=== PATIENT | male | born 1950 | race African-American/Black ===

== ENCOUNTER 2016-06-08 12:54 | Outpatient (CLI) | payer MEDICARE ==
--- NOTE | 2016-06-08 15:41 | RAD ---
CERVICAL SPINE: 06/08/16 Seven views obtained. Lateral views were obtained in neutral flexion and extension positions. HISTORY: Neck pain. Right arm numbness. There is straightening of the lordotic curvature. There is loss of disc height at all levels of the cervical spine. There is slight posterior subluxation at C3-4, C4-5, C5-6 and C6-7 levels. There is posterior spondylitic changes at these levels encroaching into the spinal canal. Anterior osteophyte s are seen at these levels. No significant change in alignment with flexion or extension. Foraminal encroachment at multiple levels due to facet and uncinate hypertrophy. IMPRESSION: Moderate degenerative changes of the cervical spine as described above. POS: ANNIE
== END 2016-06-08 12:55 | disposition home or self-care (01) ==
LOC: NAV RAD 12:54
PROVIDERS: ATTEND Neurological Surgery
DX: M54.12 Radiculopathy, cervical region (principal); M50.10 Cervical disc disorder with radiculopathy, unspecified cervical region
CPT/HCPCS: 72052

== ENCOUNTER 2017-05-02 12:36 | Emergency (ER) | payer MEDICARE ==
[2017-05-02] MEDS ORDERED: Lidocaine 1% 20 ML MDV ONE (12:54)
== END 2017-05-02 13:16 | disposition home or self-care (01) ==
LOC: NAV ERS 12:36
DX: K61.0 Anal abscess (principal); I10 Essential (primary) hypertension; F32.9 Major depressive disorder, single episode, unspecified; Z79.899 Other long term (current) drug therapy
CPT/HCPCS: 46050; J2001

== ENCOUNTER 2017-05-04 13:39 | Emergency (ER) | payer MEDICARE | END 2017-05-04 14:07 | disposition home or self-care (01) | LOC: NAV ERS 13:39 | DX: K61.0 Anal abscess (principal); I10 Essential (primary) hypertension; F32.9 Major depressive disorder, single episode, unspecified; Z79.899 Other long term (current) drug therapy | CPT/HCPCS: 99282 ==

== ENCOUNTER 2021-03-12 15:17 | Outpatient (CLI) | payer MEDICARE | END 2021-03-12 15:18 | disposition home or self-care (01) | LOC: NAV RAD 15:17 | PROVIDERS: ATTEND Nurse Practitioner Family | DX: R06.02 Shortness of breath (principal) | CPT/HCPCS: 71046 ==

== ENCOUNTER 2021-03-15 10:43 | Emergency (ER) | payer OTHER, MEDICARE ==
[~2021-03-15 10:43] MED LIST: Iopamidol 370 76% 100 ML VIAL ONE
[2021-03-15] MEDS ORDERED: Sodium Chloride 0.9% 1,000 ML ONE (11:22)
[2021-03-15] MEDS ORDERED: Ondansetron PF 4 MG/2 ML Vial ONE (11:22)
[2021-03-15] MEDS ORDERED: Fentanyl 100 MCG/2 ML VIAL ONE (11:22)
[2021-03-15 11:59] LABS: ALT (SGPT) 45 U/L (8-55); AST (SGOT) 83 U/L (5-34); Albumin 4.2 g/dL (3.4-4.8); Alkaline Phosphatase 69 U/L (40-110); Anion Gap 21 mmol/L (10-20); BUN (Urea Nitrogen) 10 mg/dL (8.4-25.7); Bilirubin, Total 1.5 mg/dL (0.2-1.2); Calc. Creatinine Clearance 0 mL/min (70-130); Calcium 10.2 mg/dL (7.8-10.44); Carbon Dioxide 21 mmol/L (23-31); Chloride 95 mmol/L (98-107); Globulin 4.1 g/dL (2.4-3.5); Glucose 102 mg/dL (80-115); Lipase 56 U/L (8-78); Potassium 3.4 mmol/L (3.5-5.1); Protein, Total 8.3 g/dL (5.8-8.1); Sodium 134 mmol/L (136-145)
[2021-03-15 12:01] LABS: #Basophils 0.1 thou/uL (0.0-0.2); #Eosinphils 0.1 thou/uL (0.0-0.7); #Lymphocytes 1.1 thou/uL (1.20-3.40); #Monocytes 0.7 thou/uL (0.11-0.59); #Neutrophils 2.8 thou/uL (1.40-6.50); %Basophils 2.6 % (0.0-1.0); %Eosinophils 2.5 % (0.0-10.0); %Lymphocytes 23.1 % (21.0-51.0); %Monocytes 13.8 % (0.0-10.0); %Neutrophils 58.1 % (42.0-75.0); Hemoglobin 14.1 g/dL (14.0-18.0); Mean Corpuscular HGB CONC 31.1 g/dL (32.0-36.0); Mean Corpuscular Hemoglobin 29.8 pg (27.0-31.0); Mean Corpuscular Volume 95.9 fL (78.0-98.0); Mean Platelet Volume 7.7 fL (7.4-10.4); Platelet Count 246 thou/uL (130-400); RBC Distribution Width 13.4 % (11.5-14.5); Red Blood Cell (RBC) Count 4.73 mill/uL (4.70-6.10); White Blood Cell (WBC) Count 4.9 thou/uL (4.8-10.8)
== END 2021-03-15 13:20 | disposition home or self-care (01) ==
LOC: NAV ERS 10:43
DX: S30.1XXA Contusion of abdominal wall, initial encounter (principal); W01.0XXA Fall on same level from slipping, tripping and stumbling without subsequent striking against object, initial encounter; I10 Essential (primary) hypertension; J45.909 Unspecified asthma, uncomplicated; Z87.891 Personal history of nicotine dependence; Z79.899 Other long term (current) drug therapy
CPT/HCPCS: 71260; 74177; 80053; 83690; 85025; 96374; 96375; J2405; J3010; J7050; Q9967

== ENCOUNTER 2021-11-18 06:22 | Emergency (ER) | payer MEDICARE, OTHER ==
[2021-11-18] MEDS ORDERED: HYDROcodone/Acetaminophen 5/325 mg Tablet ONE (06:49)
[2021-11-18 08:04] LABS: #Basophils 0.1 thou/uL (0.0-0.2); #Eosinphils 0.2 thou/uL (0.0-0.7); #Monocytes 1.1 thou/uL (0.11-0.59); %Basophils 0.8 % (0.0-1.0); %Monocytes 17.2 % (0.0-10.0); Hemoglobin 11.6 g/dL (14.0-18.0); Mean Corpuscular HGB CONC 30.2 g/dL (32.0-36.0); Mean Corpuscular Hemoglobin 30.9 pg (27.0-31.0); Mean Platelet Volume 7.7 fL (7.4-10.4); Platelet Count 280 thou/uL (130-400); Red Blood Cell (RBC) Count 3.75 mill/uL (4.70-6.10); White Blood Cell (WBC) Count 6.3 thou/uL (4.8-10.8)
[2021-11-18 08:16] LABS: ALT (SGPT) 43 U/L (8-55); AST (SGOT) 89 U/L (5-34); Alkaline Phosphatase 83 U/L (40-110); Anion Gap 24 mmol/L (10-20); BUN (Urea Nitrogen) 15 mg/dL (8.4-25.7); Bilirubin, Total 0.6 mg/dL (0.2-1.2); Calc. Creatinine Clearance 0 mL/min (70-130); Calcium 9.4 mg/dL (7.8-10.44); Carbon Dioxide 16 mmol/L (23-31); Chloride 102 mmol/L (98-107); Estimated GFR 66; Globulin 3.9 g/dL (2.4-3.5); Glucose 103 mg/dL (80-115); Potassium 3.6 mmol/L (3.5-5.1); Protein, Total 7.9 g/dL (5.8-8.1); Sodium 138 mmol/L (136-145); Uric Acid 7.2 mg/dL (3.5-7.2)
== END 2021-11-18 08:25 | disposition home or self-care (01) ==
LOC: NAV ERS 06:22
DX: M13.841 Other specified arthritis, right hand (principal); I10 Essential (primary) hypertension; Z79.899 Other long term (current) drug therapy
CPT/HCPCS: 80053; 84550; 85025

== ENCOUNTER 2022-04-30 12:43 | Emergency (ER) | payer OTHER, MEDICARE ==
[2022-04-30 13:25] LABS: #Basophils 0.1 thou/uL (0.0-0.2); #Eosinphils 0.1 thou/uL (0.0-0.7); #Lymphocytes 1.6 thou/uL (1.20-3.40); #Monocytes 0.6 thou/uL (0.11-0.59); #Neutrophils 2.4 thou/uL (1.40-6.50); %Basophils 1.5 % (0.0-1.0); %Lymphocytes 32.5 % (21.0-51.0); %Monocytes 13.5 % (0.0-10.0); %Neutrophils 49.5 % (42.0-75.0); Hemoglobin 11.3 g/dL (14.0-18.0); Mean Corpuscular HGB CONC 31.7 g/dL (32.0-36.0); Mean Corpuscular Hemoglobin 31.3 pg (27.0-31.0); Mean Corpuscular Volume 98.8 fl (78.0-98.0); Mean Platelet Volume 7.9 fL (7.4-10.4); Platelet Count 218 10x3/uL (130-400); Red Blood Cell (RBC) Count 3.61 mill/uL (4.70-6.10); White Blood Cell (WBC) Count 4.8 10x3/uL (4.8-10.8)
[2022-04-30] MEDS ORDERED: Thiamine HCl 200 MG/2 ML VIAL ONE (13:27)
[2022-04-30] MEDS ORDERED: Sodium Chloride 0.9% 1,000 ML ONE (13:27)
[2022-04-30] MEDS ORDERED: NS 0.9% w/ 20 MEQ KCL 0 ML ONE (13:27)
[2022-04-30 13:33] LABS: INR-International Normal Ratio 0.9; Prothrombin Time 12.1 sec (12.0-14.7)
[2022-04-30 13:39] LABS: ALT (SGPT) 35 U/L (8-55); AST (SGOT) 82 U/L (5-34); Albumin 3.9 g/dL (3.4-4.8); Alkaline Phosphatase 73 U/L (40-110); Anion Gap 19 mmol/L (10-20); BUN (Urea Nitrogen) 18 mg/dL (8.4-25.7); Bilirubin, Total 0.4 mg/dL (0.2-1.2); Calc. Creatinine Clearance 0 mL/min (70-130); Calcium 9.9 mg/dL (7.8-10.44); Carbon Dioxide 20 mmol/L (23-31); Chloride 104 mmol/L (98-107); Estimated GFR 42; Globulin 2.8 g/dL (2.4-3.5); Glucose 117 mg/dL (83-110); Magnesium 1.2 mg/dL (1.6-2.6); Potassium 3.6 mmol/L (3.5-5.1); Protein, Total 6.7 g/dL (5.8-8.1); Sodium 139 mmol/L (136-145)
[2022-04-30 13:41] LABS: Acetaminophen Less than 10.0 mcg/mL (10.0-30.0); Alcohol 14 mg/dL (Less than 10); CK (CPK) 28 U/L (30-200); Salicylate Less than 8.0 mg/dL (15.0-30.0)
[2022-04-30 13:43] LABS: Phosphorus 1.5 mg/dL (2.3-4.7)
[2022-04-30 14:51] LABS: Bilirubin Moderate (Negative); Blood, Urine Large (Negative); Glucose, Urine (Dipstick) Negative (Negative); Ketone, Urine 15 mg/dL (Negative); Leukocyte Negative (Negative); Nitrite Negative (Negative); Protein, Urine (Dipstick) 100 mg/dL (Neg-Trace); Specific Gravity, Urine 1.025 (1.005-1.030); pH, Urine 5.5 (5.0-9.0)
[2022-04-30 14:53] LABS: Clarity SL HAZY (Clear)
[2022-04-30 15:00] LABS: Mucous/LPF 3+ LPF (<2+); WBC/HPF 0-3 HPF (0-3)
[2022-04-30 15:01] LABS: Amphetamine Not Detected (NotDetected); Barbiturates Screen Not Detected (NotDetected); Benzodiazepine Screen Detected (NotDetected); Cocaine Metabolite Screen Not Detected (NotDetected); Medtox Control Line Valid? VALID (VALID); Methadone Not Detected (NotDetected); Methamphetamine Not Detected (NotDetected); Opiate Screen Not Detected (NotDetected); Oxycodone Screen Not Detected (NotDetected); Phencyclidine (PCP) Not Detected (NotDetected); THC/Cannabinoid Screen Not Detected (NotDetected); Tricyclic Screen Not Detected (NotDetected)
== END 2022-04-30 17:00 | disposition home or self-care (01) ==
LOC: NAV ERS 12:43
DX: E83.39 Other disorders of phosphorus metabolism (principal); R63.4 Abnormal weight loss; F10.20 Alcohol dependence, uncomplicated; E83.42 Hypomagnesemia; I10 Essential (primary) hypertension; Z79.899 Other long term (current) drug therapy; Z87.891 Personal history of nicotine dependence
CPT/HCPCS: 71045; 80053; 80306; 80307; 81003; 81015; 82550; 83605; 83735; 83880; 84100; 84443; 84484; 85025; 85610; 85730; 93005; 96374; 96375; J3411; J3480; J7050